=== PATIENT | male | born 1985 | race Asian ===

== ENCOUNTER 2017-11-29 16:03 | Emergency (ER) | payer MEDICAID ==
[~2017-11-29] VITALS: Ht 175.3 cm; Wt 70.4 kg
[2017-11-29 18:13] VITALS: BP 133/88
== END 2017-11-29 19:31 | disposition home or self-care (01) ==
LOC: EMS 16:05
DX: M25.561 Pain in right knee (principal); R03.0 Elevated blood-pressure reading, without diagnosis of hypertension
CPT/HCPCS: 29505; 99284